=== PATIENT | male | born 1995 | race Caucasian/White ===

== ENCOUNTER 2017-06-15 17:07 | Emergency (ER) | payer OTHER ==
[~2017-06-15] VITALS: Ht 175.3 cm; Wt 90.7 kg
[2017-06-15 17:10] VITALS: BP 117/80; PULSE 89; RESP 20; TEMP 98.8; O2SAT 97
[2017-06-15] MEDS ORDERED: EPINEPHrine HCL (1:1000) 1 MG/ML VIAL IM ONE (17:30)
[2017-06-15] MEDS ORDERED: methylPREDNISolone SOD SUCC 125 MG/2 ML VIAL IV PUSH ONE (17:30)
[2017-06-15] MEDS ORDERED: FAMOTIDINE 20 MG/2 ML VIAL IV PUSH ONE (17:30)
[2017-06-15] MEDS ORDERED: diphenhydrAMINE HCL 50 MG/ML VIAL IVP ONE (17:30)
--- NOTE | 2017-06-15 17:34 | PD ---
HPI Chief Complaint: Allergic/Adverse Reaction Time Seen by Provider: 17:18 Travel History International Travel<30 days: No Contact w/Intl Traveler<30days: No History of Present Illness HPI 21yo M with no significant PMH was diagnosed with influenza B today at urgent. He took his first tamiflu at 1pm. Pt started having itching and swelling in his lips about 45 min prior to coming to the ED. Pt also with itching and redness in left wrist. Denies any throat swelling, tongue swelling, chest pain , sob, n/v, abdominal pain, focal weakness or numbness. PFSH Past Surgical History Joint Replacement: No Pacemaker: No Social History Tobacco Use: No Substance Use: No Allergies-Medications (Allergen,Severity, Reaction): Coded Allergies: oseltamivir (Verified Allergy, Intermediate, LIPS SWELLING, 06/15/17) No Known Allergies (Unverified Adverse Reaction, Unknown, 06/15/17) Reported Meds & Prescriptions Reported Meds & Active Scripts Active Epipen 2-Franki Inj (Epinephrine) 0.3 Mg/0.3 Ml Pfpen 0.3 Mg IM ONCE PRN Deltasone (Prednisone) 20 Mg Tab 20 Mg PO BID 5 Days Diphenhydramine (Diphenhydramine HCl) 25 Mg Cap 25 Mg PO Q6H PRN 5 Days Reported Tamiflu (Oseltamivir Phosphate) 75 Mg Cap 75 Mg PO BID Review of Systems Except as stated in HPI: all other systems reviewed are Neg Physical Exam Narrative GENERAL: 21yo M in mild distress. SKIN: Erythema in volar aspect of left wrist, itchy. HEAD: Atraumatic. Normocephalic. EYES: Pupils equal and round. No scleral icterus. No injection or drainage. ENT: Throat: Uvula midline and not swollen. Patent airway. Edema in upper lip more than lower lip. NECK: Trachea midline. No JVD. CARDIOVASCULAR: Regular rate and rhythm. No murmur appreciated. RESPIRATORY: No accessory muscle use. Clear to auscultation. Breath sounds equal bilaterally. GASTROINTESTINAL: Abdomen soft, non-tender, nondistended. MUSCULOSKELETAL: No obvious deformities. No clubbing. No cyanosis. No edema. NEUROLOGICAL: Awake and alert. No obvious cranial nerve deficits. Motor grossly within normal limits. Normal speech. PSYCHIATRIC: Appropriate mood and affect; insight and judgment normal. Data Data Last Documented VS Vital Signs Date Time Temp Pulse Resp B/P (MAP) Pulse Ox O2 Delivery O2 Flow Rate FiO2 06/15/17 19:27 06/15/17 18:24 78 20 96 Room Air 06/15/17 17:10 98.8 Orders Orders Ecg Monitoring (06/15/17 17:18) Iv Access Insert/Monitor (06/15/17 17:18) Oximetry (06/15/17 17:18) Diphenhydramine Inj (Benadryl Inj) (06/15/17 17:30) Methylprednisolone So Succ Inj (Solumedr (06/15/17 17:30) Famotidine Inj (Pepcid Inj) (06/15/17 17:30) Epinephrine (1:1000) Inj (Adrenalin (1:1 (06/15/17 17:30) Ed Discharge Order (06/15/17 19:07) [facility] Medical Decision Making Medical Screen Exam Complete: Yes Emergency Medical Condition: Yes Differential Diagnosis Anaphylaxis vs. drug reaction vs. allergic reaction Narrative Course 21yo M with lip swelling and itchy rash in left arm after taking tamiflu. Pt given diphenhydramine, methylprednisolone, famotidine, epinephrine. Pt reevaluated at bedside and lip swelling has improved. Itching and rash has resolved. Pt has been observed for 2 hours and doing well. Denies any sob or throat swelling. Lip swelling has also resolved by now. Pt's mother is a nurse and said can observe him. Strict return precautions given. Diagnosis Primary Impression: Allergic reaction Qualified Codes: T78.40XA - Allergy, unspecified, initial encounter Patient Instructions: General Instructions Departure Forms: Tests/Procedures Additional Instructions: Please follow up with your primary care physician in 2-3 days. Return to the ED if symptoms worsen. Med/Other Pt SpecificInfo: Prescription(s) given Scripts Epinephrine Inj (Epipen 2-Franki Inj) 0.3 Mg/0.3 Ml Pfpen 0.3 MG IM ONCE Y for ALLERGIC REACTION, #1 PACK 0 Refills Prov: Keerthi Castellano DO 06/15/17 Prednisone (Deltasone) 20 Mg Tab 20 MG PO BID for 5 Days, #10 TAB 0 Refills Prov: Keerthi Castellano DO 06/15/17 Diphenhydramine (Diphenhydramine) 25 Mg Cap 25 MG PO Q6H Y for ITCHING for 5 Days, #20 CAP 0 Refills Prov: Keerthi Castellano DO 06/15/17 Disposition: 01 DISCHARGE HOME Condition: Stable Keerthi Castellano DO Jun 15, 2017 17:34
[2017-06-15 17:54] VITALS: O2SAT 97
[2017-06-15] MEDS ORDERED: OSEL75 PO (17:55)
[2017-06-15 18:24] VITALS: BP 119/66; PULSE 78; RESP 20; O2SAT 96
[2017-06-15] MEDS ORDERED: EPIP0.3I IM (19:07)
[2017-06-15] MEDS ORDERED: DIPH25CA PO (19:07)
[2017-06-15] MEDS ORDERED: PRED-503 PO (19:07)
== END 2017-06-15 19:28 | disposition home or self-care (01) ==
LOC: PHEFT 17:07
DX: T78.40XA Allergy, unspecified, initial encounter (principal); R22.0 Localized swelling, mass and lump, head; R21 Rash and other nonspecific skin eruption; Z79.899 Other long term (current) drug therapy; Z88.8 Allergy status to other drugs, medicaments and biological substances
CPT/HCPCS: 96372; 96374; 96375; 99284; J0171; J1200; J2930